=== PATIENT | female | born 1965 | race Caucasian/White ===

== ENCOUNTER 2019-10-21 13:57 | Outpatient (CLI) | payer OTHER | END 2019-10-21 14:25 | disposition home or self-care (01) | LOC: MRI 13:57 | DX: Z12.31 Encounter for screening mammogram for malignant neoplasm of breast (principal); J45.998 Other asthma; J01.00 Acute maxillary sinusitis, unspecified; M25.561 Pain in right knee; M25.562 Pain in left knee; J32.8 Other chronic sinusitis | CPT/HCPCS: 73721 ==

== ENCOUNTER 2019-10-22 06:48 | Outpatient (CLI) | payer OTHER | END 2019-10-22 06:59 | disposition home or self-care (01) | LOC: LAB 06:48 | DX: D64.89 Other specified anemias (principal); E11.65 Type 2 diabetes mellitus with hyperglycemia; E78.2 Mixed hyperlipidemia; E03.8 Other specified hypothyroidism; Z12.11 Encounter for screening for malignant neoplasm of colon ==

== ENCOUNTER → 2020-04-25 | Outpatient (CLI) | payer OTHER | END | disposition home or self-care (01) | LOC: TOM 09:08 | PROVIDERS: ATTEND Specialist | DX: K57.50 Diverticulosis of both small and large intestine without perforation or abscess without bleeding (principal) ==

== ENCOUNTER 2021-01-31 10:03 | Outpatient (CLI) | payer OTHER | END 2021-01-31 10:12 | disposition home or self-care (01) | LOC: SONOGRAMA 10:03 | PROVIDERS: ATTEND Specialist | DX: K75.81 Nonalcoholic steatohepatitis (NASH) (principal) ==

== ENCOUNTER → 2021-01-31 11:36 | Outpatient (CLI) | payer OTHER | END | disposition home or self-care (01) | LOC: LAB 11:36 | PROVIDERS: ATTEND Specialist | DX: K75.81 Nonalcoholic steatohepatitis (NASH) (principal); B16.9 Acute hepatitis B without delta-agent and without hepatic coma; B17.8 Other specified acute viral hepatitis; E78.2 Mixed hyperlipidemia ==

== ENCOUNTER 2021-04-05 07:42 | Outpatient (CLI) | payer OTHER | END 2021-04-05 07:43 | disposition home or self-care (01) | LOC: NUCLEAR 07:42 | PROVIDERS: ATTEND Specialist | DX: K81.9 Cholecystitis, unspecified (principal) | CPT/HCPCS: 78226; A9537; J2805 ==

== ENCOUNTER 2024-08-27 18:04 | Emergency (ER) | payer OTHER ==
[~2024-08-27] VITALS: Ht 172.7 cm; Wt 136.1 kg
[2024-08-27] MEDS ORDERED: PRILOSEC10 MG (19:43)
[2024-08-27] MEDS ORDERED: CHILDREN'S ASPI81 MG (19:43)
[2024-08-27] MEDS ORDERED: COZAAR25 MG (19:43)
[2024-08-27] MEDS ORDERED: EZALLOR SPRINKLE5 MG (19:43)
[2024-08-27] MEDS ORDERED: TOPROL XL25 M1 (19:43)
[2024-08-27 23:16] LABS: URINE APPEARANCE Clear; URINE BILIRRUBIN Negative (NEGATIVE); URINE BLOOD Trace; URINE COLOR Yellow; URINE GLUCOSE Negative (NEGATIVE); URINE KETONE Negative (NEGATIVE); URINE LEUKOCYTE Trace; URINE NITRATE Negative; URINE PROTEIN Negative (NEGATIVE); URINE UROBILINOGEN 0.2 E.U./dl
[2024-08-27 23:17] LABS: HEMATOCRIT 40.8 % (36.0-45.00); HEMOGLOBIN 13.3 g/dL (12.0-15.00); MEAN CELL VOLUME 83.4 fL (80.00-100.00); MEAN CORPUSCULAR HEMOGLOBIN 27.2 pg (27.00-32.0); MEAN CORPUSCULAR HGB CONC 32.6 g/dl (32.0-36.0); PLATELET COUNT 200 K/uL (150-450); RED CELL DISTRIBUTION WIDTH 13.5 % (11.5-14.5)
[2024-08-27 23:21] LABS: URINE BACTERIA 270.3 uL (0.0-1933); URINE EPITHELIAL CELLS 14.5 uL (0.0-38.8); URINE RBC 9.7 uL (0.0-20.8)
[2024-08-27 23:32] LABS: URINE CAST 0.14 uL (0.0-1.40)
[2024-08-27] MEDS ORDERED: MACROBID 100 M100 MG PO (23:56)
== END 2024-08-28 01:28 | disposition home or self-care (01) ==
LOC: ER 18:06
DX: N39.0 Urinary tract infection, site not specified (principal)